=== PATIENT | female | born 1955 | race Caucasian/White ===

== ENCOUNTER 2020-11-02 08:22 | Emergency (ER) | payer BC, OTHER ==
[~2020-11-02] VITALS: Ht 165.1 cm; Wt 88.5 kg
[2020-11-02 08:28] VITALS: BP_SYST 133
--- NOTE | 2020-11-02 08:33 | NUR ---
AMBULATED TO BED 8
--- NOTE | 2020-11-02 08:48 | NUR ---
Pt came to ER for facial redness and swelling, no pain, VSS, resting in [place]. Pt awaiting MD at this time.
--- NOTE | 2020-11-02 08:52 | NUR ---
ER at bedside examining patient.
[2020-11-02] MEDS ORDERED: predniSONE 20 MG TABLET PO ONE (09:00)
[2020-11-02] MEDS ORDERED: DIPHENHYDRAMINE HCL 50 MG CAPSULE PO ONE (09:00)
[2020-11-02] MEDS ORDERED: DIPH25CA83 PO (09:03)
[2020-11-02] MEDS ORDERED: PRED20TA PO (09:03)
[2020-11-02] MEDS ORDERED: DIPHENHYDRAMINE HCL 25 MG CAPSULE ONE (09:05)
[2020-11-02 09:49] VITALS: BP_SYST 133
--- NOTE | 2020-11-02 09:49 | NUR ---
Patient given written and verbal discharge instructions and verbalizes understanding. ER MD discussed with patient the results and treatment provided. Patient in stable condition. ID arm band removed. Rx of Prednisone and Benadryl given. Patient educated on pain management and to follow up with PMD. Pain Scale 0/10. Opportunity for questions provided and answered. Medication side effect fact sheet provided.
== END 2020-11-02 09:49 | disposition home or self-care (01) ==
LOC: SED 08:22
DX: T78.40XA Allergy, unspecified, initial encounter (principal); I10 Essential (primary) hypertension; E07.9 Disorder of thyroid, unspecified; X58.XXXA Exposure to other specified factors, initial encounter
CPT/HCPCS: 99283; J7512; Q0163